=== PATIENT | female | born 1990 | race Caucasian/White ===

== ENCOUNTER 2019-12-06 16:36 | Emergency (ER) | payer MEDICAID, OTHER ==
[~2019-12-06] VITALS: Ht 162.6 cm; Wt 75.3 kg
[2019-12-06 17:29] LABS: BILIRUBIN,URINE NEGATIVE (NEGATIVE); UROBILINOGEN,URINE NORMAL (NEGATIVE)
[2019-12-06 17:35] VITALS: BP 111/69
[2019-12-06 17:39] VITALS: BP 111/69
--- NOTE | 2019-12-06 17:39 | ER.PDOC ---
General Chief Complaint: Female Urogenital Problems Stated Complaint: UTI Time seen by MD: 17:00 Source: patient Exam Limitations: no limitations History of Present Illness Timing/Duration: yesterday Severity/Quality: mild Location of Pain: abdominal pain (more left lower quadrant) LMP (females 10-50): 1 month Test: home Contraceptive: none Associated Symptoms: dysuria, urinary frequency Allergies: Coded Allergies: No Known Allergies (Unverified , 05/02/18) Review of Systems Constitutional: no symptoms reported EENTM: no symptoms reported Respiratory: no symptoms reported Cardiovascular: no symptoms reported Gastrointestinal: no symptoms reported Genitourinary: burning, dysuria, frequency, pain, urgency Musculoskeletal: no symptoms reported Skin: no symptoms reported Psychiatric/Neurological: no symptoms reported All Other Systems: Reviewed and Negative Physical Exam General Appearance: No Apparent Distress, WD/WN EENT: eyes nml inspection, nml ENT inspection, pharynx nml Neck: nml inspection, non-tender Cardiovascular/Respiratory: Regular Rate, Rhythm Abdomen: Normal Bowel Sounds, Non Tender, Soft, Tenderness (lower left quadrant) Back: nml inspection Extremities: Normal Range of Motion Neurologic/Psychiatric: Alert Skin: Normal Color, Warm/Dry Lymphatic: No Adenopathy Results/Orders Results/Orders Orders - JUAN TIPTON NP Urinalysis (12/06/19 17:19) Urine Culture (12/06/19 UNK) Vital Signs Date Time Temp Pulse Resp B/P (MAP) Pulse Ox O2 Delivery O2 Flow Rate FiO2 12/06/19 17:39 98.6 63 16 12/06/19 17:35 98.6 63 18 111/69 (83) 100 12/06/19 17:09 98.6 63 18 100 Laboratory Tests Test 12/06/19 00:00 Urine Collection Type UNKNOWN Urine Color STRAW (YELLOW) Urine Appearance CLOUDY (CLEAR) H Urine Bilirubin NEGATIVE MG/DL (NEGATIVE) Urine Ketones NEGATIVE (NEGATIVE) Urine Specific [place] 1.010 (1.005-1.035) Urine pH 6.5 (5.0-6.0) Urine Protein NEGATIVE (NEGATIVE) Urine Urobilinogen NORMAL (NEGATIVE) Urine Nitrate NEGATIVE (NEGATIVE) Urine Leukocyte Esterase 25 /uL TRACE (NEGATIVE) Urine Blood NEGATIVE (NEGATIVE) Urine RBC 0-2 RBC/HPF (NONE SEEN) Urine WBC 2-5 WBC/HPF (0-2) Urine Squamous Epithelial Cells FEW #/HPF (FEW) Urine Bacteria FEW (NONE SEEN) H Urine Yeast RARE Urine Glucose NORMAL (NEGATIVE) Departure Time of Disposition: 18:01 Disposition: 01 HOME, SELF-CARE Impression: Primary Impression: Acute pelvic pain Additional Impression: Cystitis Condition: Stable Referrals: PCP,UNKNOWN (PCP) PRIMARY CARE PROVIDER Comments Please follow up with PCP in next 2-3 days If symptoms become worse please return to the ER Duration or Time Spent with Pa: 20 min Problem Qualifiers JUAN TIPTON NP Dec 06, 2019 17:39
[2019-12-06 17:54] LABS: APPEARANCE,URINE CLOUDY (CLEAR); UA COLOR STRAW (YELLOW)
[2019-12-06 17:56] LABS: YEAST,URINE RARE
[2019-12-06 18:09] VITALS: BP 112/70
== END 2019-12-06 18:11 | disposition home or self-care (01) ==
LOC: ER 17:41
DX: N30.90 Cystitis, unspecified without hematuria (principal)
CPT/HCPCS: 81000; 87086; 99284